=== PATIENT | male | born 1975 | race Two or more races ===

== ENCOUNTER 2018-11-24 11:33 | Emergency (ER) | payer MEDICAID ==
[2018-11-24] MEDS ORDERED: HYDROmorphone 2 MG/ML SDV IVPUSH ONE (11:46)
[2018-11-24] MEDS ORDERED: Ketorolac 30 MG/ML SDV IVPUSH ONE (11:46)
--- NOTE | 2018-11-24 11:50 | EDM.PDOC ---
ED HPI GENERAL MEDICAL PROBLEM - General Stated Complaint: SWOLLEN PENIS Time Seen by Provider: 11/24/18 11:33 Source of Information: Reports: Patient History Limitations: Reports: No Limitations - History of Present Illness INITIAL COMMENTS - FREE TEXT/NARRATIVE: 42 y.o.w m came to the ed 1 day after he got is foreskin into zipper of his Jeans. His penis was "swollen all day long, was painful which brought him to come to the ed. No N/V/D, Dizziness, CP or any other acute medical issues. BP 151/82 RR 16 Pulse ox 99% on RA Temp 36.7 Pulse 71 Onset Date: 11/23/18 Onset Time: 06:00 Duration: Day(s):, Getting Worse Location: Reports: Pelvis Quality: Reports: Ache, Burning, Dull Improves with: Reports: Rest Worsens with: Reports: Other (urinating), Movement Context: Reports: Trauma (to forescin) Associated Symptoms: Reports: No Other Symptoms - Related Data Allergies Allergy/AdvReac Type Severity Reaction Status Date / Time No Known Allergies Allergy Verified 11/24/18 12:15 Home Meds: Home Meds cephALEXin [Keflex] 500 mg PO Q6H #40 cap 11/24/18 [Rx] ED ROS GENERAL - Review of Systems Review Of Systems: See Below Constitutional: Reports: No Symptoms HEENT: Reports: No Symptoms Respiratory: Reports: No Symptoms Cardiovascular: Reports: No Symptoms Endocrine: Reports: No Symptoms GI/Abdominal: Reports: No Symptoms : Reports: Other (penis swelling) Musculoskeletal: Reports: No Symptoms Skin: Reports: Wound (foreskin) Neurological: Reports: No Symptoms Psychiatric: Reports: No Symptoms Hematologic/Lymphatic: Reports: No Symptoms Immunologic: Reports: No Symptoms ED EXAM, RENAL/ - Physical Exam Exam: See Below Exam Limited By: No Limitations General Appearance: Alert, WD/WN, Moderate Distress Eye Exam: Bilateral Eye: Normal Inspection Ears: Normal External Exam Nose: Normal Inspection Throat/Mouth: Normal Inspection, Normal Voice, No Airway Compromise Head: Atraumatic, Normocephalic Neck: Normal Inspection, Supple, Non-Tender Respiratory/Chest: No Respiratory Distress, Lungs Clear, Normal Breath Sounds, Chest Non-Tender Cardiovascular: Normal Peripheral Pulses, Regular Rate, Rhythm, No Edema GI/Abdominal: Normal Bowel Sounds, Soft, Non-Tender, No Organomegaly (Male) Exam: Penile Lesions (phymosis, abrasion of foreskin. ), Other ( Phymosis) Rectal (Males) Exam: Deferred Back Exam: Normal Inspection, Full Range of Motion Extremities: Normal Inspection, Normal Range of Motion, Non-Tender Neurological: Alert, Oriented, CN II-XII Intact, Normal Cognition, Normal Gait Psychiatric: Normal Affect, Normal Mood Skin Exam: Wound/Incision (foreskin) Lymphatic: No Adenopathy Course - Vital Signs Text/Narrative:: 42 y.o.w m came to the ed 1 day after he got is foreskin into zipper of his Jeans. His penis was "swollen all day long, was painful which brought him to come to the ed. No N/V/D, Dizziness, CP or any other acute medical issues. BP 151/82 RR 16 Pulse ox 99% on RA Temp 36.7 Pulse 71 PE: WNWD W M with n phimosis and an abrasion at his foreskin. Pt is not circumcised. Procedure: after toradol and Dilauded were given, pressure was applied to penal glans and was reduced without any complication. Impression: Phimosis Tx: Toradol, Dilaudid and keflex 12.34 pm Consultation: Dr. Adan, Urologist, [facility]: Give keflex, F/ U in clinic as needed. Reexam: Improved Plan: D/C with Instructions Last Recorded V/S: Last Vital Signs Temp 36.3 C 11/24/18 13:30 Pulse 64 11/24/18 13:30 Resp 16 11/24/18 13:30 BP 128/83 11/24/18 13:30 Pulse Ox 99 11/24/18 13:30 - Orders/Labs/Meds Labs: Laboratory Tests 11/24/18 11/24/18 11/24/18 Range/Units 11:50 11:50 12:45 WBC 7.5 (4.5-12.0) X10-3/uL RBC 4.49 (4.30-5.75) x10(6)uL Hgb 14.0 (11.5-15.5) g/dL Hct 41.7 (30.0-51.3) % MCV 93.0 (80-96) fL MCH 31.3 (27.7-33.6) pg MCHC 33.6 (32.2-35.4) g/dL RDW 13.3 (11.5-15.5) % Plt Count 251 (125-369) X10(3)uL MPV 7.5 (7.4-10.4) fL Neut % (Auto) 71.2 (46-82) % Lymph % (Auto) 16.8 (13-37) % Clinton % (Auto) 9.2 (4-12) % Eos % (Auto) 2 (1.0-5.0) % Baso % (Auto) 1 (0-2) % Neut # (Auto) 5.2 (1.6-8.3) # Lymph # (Auto) 1.3 (0.6-5.0) # Clinton # (Auto) 0.7 (0.0-1.3) # Eos # (Auto) 0.2 (0.0-0.8) # Baso # (Auto) 0.1 (0.0-0.2) # Sodium 141 (135-145) mmol/L Potassium 3.9 (3.5-5.3) mmol/L Chloride 105 (100-110) mmol/L Carbon Dioxide 27 (21-32) mmol/L BUN 25 H (7-18) mg/dL Creatinine 1.1 (0.70-1.30) mg/dL Est Cr Clr Drug Dosing TNP Estimated GFR (MDRD) > 60 (>60) BUN/Creatinine Ratio 22.7 H (9-20) Glucose 118 H (80-116) mg/dL Calcium 8.1 L (8.6-10.2) mg/dL Urine Color Yellow (YELLOW) Urine Appearance Clear (CLEAR) Urine pH 5.0 (5.0-6.5) Ur Specific Hubbard 1.020 (1.010-1.025) Urine Protein Negative (NEGATIVE) mg/dL Urine Glucose (UA) Normal (NEGATIVE) mg/dL Urine Ketones Negative (NEGATIVE) mg/dL Urine Occult Blood Negative (NEGATIVE) Urine Nitrite Negative (NEGATIVE) Urine Bilirubin Negative (NEGATIVE) Urine Urobilinogen 4 H (NEGATIVE) mg/dL Ur Leukocyte Esterase Negative (NEGATIVE) Urine RBC 5-10 (0) Urine WBC 5-10 (0) Ur Squamous Epith Cells Few H (NS,R,O) Urine Bacteria Moderate H (NS) Meds: Medications Discontinued Medications Generic Name Dose Route Start Last Admin Trade Name Gabby PRN Reason Stop Dose Admin Cephalexin 500 mg 11/24/18 13:12 11/24/18 13:34 Keflex PO 11/24/18 13:13 500 mg ONETIME ONE Administration Hydromorphone HCl 1 mg 11/24/18 11:46 11/24/18 12:25 Dilaudid IVPUSH 11/24/18 11:47 1 mg ONETIME ONE Administration Ketorolac Tromethamine 30 mg 11/24/18 11:46 11/24/18 12:21 Toradol IVPUSH 11/24/18 11:47 30 mg ONETIME ONE Administration Departure - Departure Time of Disposition: 13:12 Disposition: Home, Self-Care 01 Condition: Good Clinical Impression: Acquired phimosis - Discharge Information Prescriptions: cephALEXin [Keflex] 500 mg PO Q6H #40 cap Instructions: Phimosis, Pediatric Referrals: PCP,None [Primary Care Provider] - Forms: ED Department Discharge, ED Return to Work/School Form Additional Instructions: Please keep the affected area dry and clean, please take the ABx as recommended , please f/u, come back if your symptoms get worse acutely
[2018-11-24] MEDS ORDERED: Cephalexin 500 MG Cap PO ONE (13:12)
== END 2018-11-24 13:50 | disposition home or self-care (01) ==
LOC: FB.ED 11:33
DX: N47.1 Phimosis (principal)
CPT/HCPCS: 36415; 80048; 81001; 85025; 96372; 96374; 99283; A9270; J1170; J1885